=== PATIENT | female | born 1980 | race Two or more races ===

== ENCOUNTER 2018-08-25 17:10 | Emergency (ER) | payer BC ==
[~2018-08-25] VITALS: Ht 149.9 cm; Wt 124.7 kg
[2018-08-25] MEDS ORDERED: FLEXERIL (17:59)
[2018-08-25] MEDS ORDERED: PNEU16DI2 (18:00)
[2018-08-25] MEDS ORDERED: MELOXICAM7.5 MG (18:00)
== END 2018-08-25 19:38 | disposition home or self-care (01) ==
LOC: ER 17:10
DX: J32.8 Other chronic sinusitis (principal)

== ENCOUNTER 2018-11-15 06:47 | Emergency (ER) | payer BC ==
[~2018-11-15] VITALS: Ht 149.9 cm; Wt 127.0 kg
[~2018-11-15 06:47] MED LIST: FLEXERIL; MELOXICAM7.5 MG; PNEU16DI2
[2018-11-15] MEDS ORDERED: KETO10TA2 (07:04)
[2018-11-15] MEDS ORDERED: INTESTINEX680 M1 PO (12:43)
== END 2018-11-15 17:06 | disposition home or self-care (01) ==
LOC: ER 06:47
DX: G43.909 Migraine, unspecified, not intractable, without status migrainosus (principal); R19.7 Diarrhea, unspecified; R00.1 Bradycardia, unspecified